=== PATIENT | female | born 1945 | race Caucasian/White ===

== ENCOUNTER 2021-11-18 17:43 | Emergency (ER) | payer OTHER ==
[~2021-11-18] VITALS: Ht 165.1 cm; Wt 59.0 kg
== END 2021-11-18 22:55 | disposition home or self-care (01) ==
LOC: ER 17:43
DX: S52.501A Unspecified fracture of the lower end of right radius, initial encounter for closed fracture (principal); S52.611A Displaced fracture of right ulna styloid process, initial encounter for closed fracture; W01.0XXA Fall on same level from slipping, tripping and stumbling without subsequent striking against object, initial encounter
CPT/HCPCS: 36415; 73100; A9270; J2704; J7030

== ENCOUNTER 2021-12-04 13:32 | Day surgery (SDC) | payer OTHER ==
[~2021-12-04] VITALS: Ht 165.1 cm; Wt 61.0 kg
[2021-12-04] MEDS ORDERED: ACET500 PO (13:47)
[2021-12-04] MEDS ORDERED: IBUP200 PO (13:48)
--- NOTE | 2021-12-04 17:55 | NUR ---
Patient up to Ambulate independently. Gait steady. Dressing to procedure site clean, dry, intact with no visible drainage, swelling, erythema or bruising noted. Discharge instructions reviewed with patient. Patient verbalizes understanding. Copy given to patient to take home. Discharged via wheelchair to private car for ride home WITH FRIEND FRANKY. PATIENT REPORTS PAIN 11/19. PT APPEARS CALM, RELAXED AND IN NO DISTRESS.
== END 2021-12-04 23:31 | disposition home or self-care (01) ==
LOC: ORSCMMR 13:32 → ORD 15:00 → ORSCMMR 23:31
PROVIDERS: Orthopaedic Surgery
PROC: 0PSH04Z Reposition Right Radius with Internal Fixation Device, Open Approach (ICD-10-PCS; principal; 2021-12-04 15:00)
DX: S52.571A Other intraarticular fracture of lower end of right radius, initial encounter for closed fracture (principal); I48.0 Paroxysmal atrial fibrillation; Z87.891 Personal history of nicotine dependence
CPT/HCPCS: A9270; C1713; J0690; J1100; J2250; J2270; J2405; J2704; J3010; J7120